=== PATIENT | male | born 1980 | race Caucasian/White ===

== ENCOUNTER 2021-05-16 00:24 | Emergency (ER) | payer SELFPAY ==
[~2021-05-16] VITALS: Ht 177.8 cm; Wt 89.8 kg
--- NOTE | 2021-05-16 00:36 | PHYS DOC ---
General Adult EDM: Chief Complaint: DENTAL PROBLEM HPI: HPI: Patient is a 40 year old male here with bilateral lower dental pain. He has several severe dental caries and multiple broken teeth. He has not seen a dentist in quite some time. He denies any acute trauma or injury. Denies fevers or chills. Denies sore throat. Denies voice changes. Denies dyspnea. Denies chest pain. He reports that he is taking Tylenol with codeine for his back pain, as prescribed by a work comp physician. He reports that this has not done anything to help his pain he has not taken any NSAID medication. Review of Systems: Review of Systems: Constitutional: Denies fever or chills. [] HENT: Dental pain, as per HPI. Denies sore throat. Respiratory: Denies cough or shortness of breath. [] Cardiovascular: Denies chest pain GI: Denies nausea or vomiting. Neurologic: Denies headache, focal weakness or sensory changes. [] Endocrine: Denies polyuria or polydipsia. [] Lymphatic: Denies swollen glands. [] Psychiatric: Denies acute mood disturbance [] Heart Score: C/O Chest Pain: No Risk Factors: Risk Factors: DM, Current or recent (<one month) smoker, HTN, HLP, family histo ry of CAD, obesity. Risk Scores: Score 0 - 3: 2.5% MACE over next 6 weeks - Discharge Home Score 4 - 6: 20.3% MACE over next 6 weeks - Admit for Clinical Observation Score 7 - 10: 72.7% MACE over next 6 weeks - Early Invasive Strategies Physical Exam: PE: Constitutional: Well developed, well nourished, no acute distress, non-toxic appearance. [] HENT: Normocephalic, atraumatic, oropharynx is patent and clear. Mucous membranes are moist. No facial edema. No drooling or trismus. Speaks in full and clear sentences, controlling secretions well. Multiple severe dental caries, multiple broken teeth. Gingivitis noted diffusely in the lower gingiva, more prominently in the molar regions. No drainage. No pulp focal fluctuance or soft tissue swelling is noted. There is tenderness around the gingiva of the right and left lower molars. Eyes: Sclera are clear and anicteric Neck: Trachea is midline. No tenderness. No submandibular swelling or adenopathy. Cardiovascular: Well-perfused appearing. Lungs & Thorax: Respirations are nonlabored. Back: No tenderness, no CVA tenderness. [] Extremities: No limb deformity. Neurologic: Alert and oriented X 3, no facial asymmetry, speech is clear and fluent, gait is steady. Psychologic: Affect appropriate, he is cooperative. [] EKG: EKG: [] Radiology/Procedures: Radiology/Procedures: [] Course & Med Decision Making: Course & Med Decision Making The patient is given a dose of IM Toradol as well as a first dose of p.o. penicillin here. I offered him a dental block, which he accepted. He reported significant and immediate relief of his pain. He is given outpatient dental resources. I told him he may want to contact the [facility] dental school for further care as well. He will likely require formal extraction of these significantly diseased teeth. No current indication for further invasive exams, labs or imaging at this time. Return precautions are given. Home care instructions and dietary instructions are provided. He is comfortable with the plan of care peer Deanne Disclaimer: Deanne Disclaimer: This electronic medical record was generated, in whole or in part, using a voice recognition dictation system. Departure Departure Impression: Primary Impression: Dental caries Additional Impression: Pain due to dental caries Disposition: HOME / SELF CARE / HOMELESS Condition: STABLE Referrals: NON,STAFF (PCP) Scripts Chlorhexidine Gluconate (PERIDEX) 15 Ml Mouthwash 15 ML PO BID for 7 Days, #480 ML 0 Refills Prov: JOE MCCARTHY DO 05/16/21 Penicillin V Potassium (PENICILLIN V POTASSIUM) 500 Mg Tablet 1 TAB PO QID for 7 Days, #28 TAB Prov: JOE MCCARTHY DO 05/16/21 Tramadol Hcl (ULTRAM) 50 Mg Tablet 1 TAB PO PRN Q6HRS PRN for pain MDD 4 Tablet(s), #10 TAB 0 Refills Prov: JOE MCCARTHY DO 05/16/21 JOE MCCARTHY DO May 16, 2021 00:36
[2021-05-16 00:51] VITALS: BP 175/95
[2021-05-16] MEDS ORDERED: TRAM-48 PO (00:58)
[2021-05-16] MEDS ORDERED: CHLO15MO2 PO (00:58)
[2021-05-16] MEDS ORDERED: PENI500T PO (00:58)
[2021-05-16] MEDS ORDERED: LIDOCAINE 1% Multi-Dose 20 ML VIAL. INJ ONE (01:30)
[2021-05-16] MEDS ORDERED: PENICILLIN V K 250 MG TABLET. PO ONE (01:30)
[2021-05-16] MEDS ORDERED: KETOROLAC 30 MG/ML VIAL. IM ONE (01:30)
== END 2021-05-16 01:32 | disposition home or self-care (01) ==
LOC: ER 00:24
DX: K02.9 Dental caries, unspecified (principal); K08.89 Other specified disorders of teeth and supporting structures
CPT/HCPCS: 64400; 99284; J1885; J3490